=== PATIENT | male | born 2005 | race Caucasian/White ===

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

== ENCOUNTER 2023-11-13 14:27 | Emergency (ER) | payer MEDICARE, MEDICAID, SELFPAY ==
--- NOTE | ~2023-11-13 | US_ITS ---
EXAMINATION: US ABDOMEN LIMITED CLINICAL INFORMATION: Epigastric pain, gallstones. COMPARISON: None available. TECHNIQUE: Real-time imaging of the right upper quadrant abdominal viscera. FINDINGS: PANCREAS: Normal. LIVER: The liver is normal in size. The liver contour is normal. Slightly increased parenchymal echogenicity. No focal hepatic lesion. There is no intrahepatic biliary duct dilatation seen. GALLBLADDER: Normal. The gallbladder is physiologically distended without evidence of stones, sludge, polyps, wall thickening or pericholecystic fluid. COMMON BILE DUCT: Normal in caliber measuring 0.2 cm in diameter. RIGHT KIDNEY: Normal. No hydronephrosis. No renal calculi or focal parenchymal lesions. The kidney measures 10 cm in maximum dimension. FREE FLUID: None. US/US abdomen limited IMPRESSION: 1. Slightly increased hepatic parenchymal echogenicity, which is nonspecific but could be seen in the setting of hepatic steatosis or hepatocellular disease. Correlate with liver function tests. 2. Otherwise, normal examination. Specifically, no evidence of cholelithiasis or acute cholecystitis.
[2023-11-13 14:56] VITALS: BP 116/81; PULSE 106; RESP 18; TEMP 36.8; O2SAT 100; BMI 24.4
--- NOTE | 2023-11-13 14:58 | ED.GENADULT ---
HPI - General Adult General Chief complaint: Abdominal Pain Stated complaint: abd pain Time Seen by Provider: 11/13/23 21:22 Source: patient Mode of arrival: ambulatory Limitations: no limitations History of Present Illness HPI narrative: 18-year-old male presents to ED for epigastric abdominal pain with nausea for 11 days. Patient states symptoms mother due to withdrawal. Patient states he has been on Ativan and Venlafaxine for years, but lost her PCP due to missed appointments so did not a refill of those meds and has been without for 11 days. Patient states in the past when he has a sudden cut off of Ativan and venlaxafine he has had withdrawal symptoms in the past. Patient denies any lower abdominal pain. Patient states symptoms slight acid burning sensation. Related Data Home Medications ?Medication ?Instructions ?Recorded ?Confirmed cyproheptadine 4 mg tablet 4 mg PO BID 04/25/21 04/25/21 estradiol 0.1 mg/24 hr semiweekly 1 patch topical 2XW 04/25/21 04/25/21 transdermal patch isotretinoin 40 mg capsule 40 mg PO DAILY 04/25/21 04/25/21 (Amnesteem) lorazepam 1 mg tablet (Ativan) 1 tab PO TID PRN Anxiety 04/25/21 04/25/21 minocycline 100 mg capsule 100 mg PO BID 04/25/21 04/25/21 trazodone 50 mg tablet 50 mg PO BEDTIME 04/25/21 04/25/21 venlafaxine 150 mg 150 mg PO QAM 04/25/21 04/25/21 capsule,extended release 24 hr Previous Rx's ?Medication ?Instructions ?Recorded lorazepam 1 mg tablet (Ativan) 1 mg PO TID PRN anxiety 3 days #9 11/14/23 tabs ondansetron 4 mg disintegrating 4 mg PO Q6H PRN nausea and 11/14/23 tablet vomiting 2 days #8 tabs venlafaxine 100 mg tablet 100 mg PO QAM 3 days #3 tabs 11/14/23 Allergies Allergy/AdvReac Type Severity Reaction Status Date / Time amoxicillin [AMOXICILLIN] Allergy Unknown HIVES Verified 11/13/23 15:00 clavulanic acid Allergy Unknown HIVES Verified 11/13/23 15:00 [From AUGMENTIN] Review of Systems Review of Systems: epigastric pain. Nausea vomiting. Yes all other systems are reviewed and are negative [facility] Past Medical History Medical History ADHD Anxiety Autism Depression Self-harming behavior Social History Social History Alcohol intake: never Smoked in Last 30 Days: No Use of substances other than those prescribed or required for medical reasons: Yes Substance Use Type: Marijuana Substance Use Frequency: Occasionally Advance Directives: No Advance Directives Information Provided: No Do you have a plan to hurt others: No Plan Physical Exam ED Vital Signs: Vital Signs - 24 hr 11/13/23 14:56 11/13/23 21:32 11/14/23 01:56 Temperature 98.3 F 98.6 F 98.1 F Pulse Rate 106 H 76 91 Respiratory Rate 18 18 18 Blood Pressure 116/81 112/76 110/71 Pulse Oximetry 100 98 100 Oxygen Delivery Method Room Air Room Air Room Air BMI result Body Mass Index 24.4 Const General: cooperative, healthy appearing, comfortable, no acute distress, well developed, alert and awake Orientation/consciousness: oriented to person, oriented to place, oriented to time and patient oriented x3 HENMT Head: Yes normal to inspection, Yes No palpable skull fracture present, Yes normocephalic, Yes atraumatic and No abrasion Eyes General: appearance normal, both eyes and all related structures Neck Neck: Yes normal visual inspection, Yes full ROM, Yes no lymphadenopathy, Yes no meningeal signs, Yes trachea midline, Yes supple, No anterior neck swelling and No tender Chest Chest palpation & inspection: normal inspection of the chest and normal palpation of entire chest wall Resp Effort & Inspection: normal respiratory effort and able to speak in complete sentences Auscultation: clear to auscultation bilaterally Cardio Jugular venous distension: no JVD Heart sounds: S1 normal heart sound present and S2 normal heart sound present GI Inspection: Yes normal to inspection Palpation (GI): Tenderness to palpation present (GI) in the epigastrum; not in the LLQ, not in the RLQ, not in the LUQ, not in the RUQ, not at McBurney's point, not periumbilically, not suprapubicly, Mayes's sign negative, obturator sign negative, psoas sign negative, with no rebound tenderness and Rovsing's sign negative, no guarding and not rigid General: Yes no CVA tenderness Male General Exam: Yes normal external exam Penis: normal penis and circumcised Meatus: meatus normal Scrotum: scrotum normal Testes: Testes normal Back/Spine/Pelvis Back: no CVA tenderness and No back tenderness Skin General skin exam: no rashes or lesions noted, elasticity normal and turgor normal Neuro General: oriented to person, oriented to place, oriented to time, patient oriented x3, gait normal, tone normal, moves all extremities, Normal light touch and pain sensation, no meningeal signs, no focal motor deficits, CN's II-XI intact bilaterally and normal sensation to monofilament Extrem General: Yes normal to inspection, Yes full ROM and Yes capillary refill normal Psych Appearance: grossly normal, well kempt and not disheveled Course Course Course Narrative: RME performed by Alyssa Allison PA-C. Patient is a 18 year old assigned male at , now female - goes by Porsche (she/her) presenting to the emergency department with abdominal pain, nausea, and vomiting. Patient states that she recently went through ativan withdrawal but believes those symptoms have passed. Detailed physical exam and review of systems are deferred to the tile roofer. Labs and swabs ordered. Patient placed back in the waiting room pending room availability and results. Medications Administered Discontinued Medications Generic Name Dose Route Start Last Admin Trade Name Freq PRN Reason Stop Dose Admin Al Hydroxide/Mg Hydroxide 30 ml 11/13/23 22:11 11/13/23 22:36 Magnesium Hydrox/Alum Hydrox 30 Ml Oral.Susp PO 11/13/23 22:12 30 ml ONCE ONE Administration Famotidine 20 mg 11/13/23 22:11 11/13/23 22:36 Famotidine 20 Mg Tablet PO 11/13/23 22:12 20 mg ONCE ONE Administration Lidocaine HCl 15 ml 11/13/23 22:11 11/13/23 22:37 Lidocaine Hcl Viscous 2 % 15 Ml Solution MUCOUS MEM 11/13/23 22:12 15 ml ONCE ONE Administration Lorazepam 1 mg 11/13/23 22:10 11/13/23 22:36 Lorazepam 1 Mg Tablet PO 11/13/23 22:11 1 mg ONCE ONE Administration Ondansetron HCl 4 mg 11/13/23 23:51 11/14/23 01:21 Ondansetron Odt 4 Mg Tab.Travisdis ALIAINGU 11/13/23 23:52 4 mg ONCE ONE Administration Venlafaxine HCl 150 mg 11/13/23 22:11 11/13/23 22:43 Venlafaxine Hcl 25 Mg Tablet PO 11/13/23 22:12 150 mg ONCE ONE Administration Medical Decision Making Medical Decision Making [facility] Narrative: 18-year-old male identified as a woman see ED for epigastric pain nausea vomiting for 11 days since Ativan and venxalafine ran out and she was not given a refill. Patient denies any lower abdominal pain, symptoms, flank pain, fever, chills, nausea, or vomiting. Patient given dose of Ativan and venxaline in the ED. Will order abdominal ultrasound 2:04am: Abdominal ultrasound negative for cholecystitis but positive for fatty liver. Patient is sleeping comfortably in the bed. Patient not in any distress. Patient will be discharged to follow up with primary care provider. exam was perfomed before discharge due patient request after main complaint before discharge. Physical exam negative for signs of STD, torsion, epidydimitits, balanitis, fungal rash, or Cancer. Differential Diagnosis Differential Diagnoses: The differential diagnosis associated with the presentation includes (Cholecystitis, pancreatitis, benzo withdrawal) Admission/Observation Consideration of admission/observation: Escalation of care including admission/observation considered Lab Data [facility] Lab Attestation statement: I reviewed the patient's lab results. 11/13/23 16:56 11/13/23 16:56 Labs: Lab Results 11/13/23 11/13/23 Range/Units 16:56 22:14 WBC 11.6 H (4.8-10.8) X10*3/uL RBC 4.63 (4.60-5.80) X10*6/uL Hgb 15.1 (14.0-18.0) g/dl Hct 42.6 (42.0-52.0) % MCV 92.0 (80.0-98.0) fL MCH 32.6 (27.0-33.0) pg MCHC 35.4 (31.0-36.0) g/dl RDW 11.9 (11.0-16.0) % Plt Count 272 (160-400) X10*3/uL MPV 10.6 (9.4-12.4) fL Immature Gran % (Auto) 0.3 (0.0-0.4) % Neut % (Auto) 62.5 (45-73) % Lymph % (Auto) 29.5 (20-40) % Lenoir % (Auto) 6.4 (2-11) % Eos % (Auto) 0.7 (0-4) % Baso % (Auto) 0.6 (0-2) % Lymph # (Auto) 3.4 (1.2-4.9) X10*3/uL Lenoir # (Auto) 0.7 (0.1-1.2) X10*3/uL Eos # (Auto) 0.1 (0.0-0.4) X10*3/uL Baso # (Auto) 0.1 (0.0-0.2) X10*3/uL Abs Immat Gran (auto) 0.03 (0.00-0.03) X10*3/uL Absolute Neuts (auto) 7.3 (2.0-8.3) x10*3/uL Absolute Nucleated RBC 0.000 (0.0-0.012) X10*3/uL Nucleated RBC % (auto) 0.0 (0.0-0.2) /100WBC PT 11.5 (11.1-13.3) SEC INR 0.9 (0.9-1.1) APTT 34.6 (26.0-36.8) SEC Sodium 141 (135-145) mmol/L Potassium 4.1 (3.3-5.1) mmol/L Chloride 106 (96-108) mmol/L Carbon Dioxide 24 (22-29) mmol/L Anion Gap 15 (12-20) BUN 12 (9-16) mg/dL Creatinine 0.77 (0.5-1.4) mg/dL Estim Creat Clear Calc 167.9 Estimated GFR > 60 Random Glucose 89 (60-115) mg/dL Calcium 10.2 D (8.4-10.2) mg/dL Magnesium 2.1 (1.6-2.6) mg/dL Total Bilirubin 0.4 (0.0-1.0) mg/dL AST 19 (5-37) U/L ALT 17 (0-40) U/L Alkaline Phosphatase 66 (39-117) U/L Total Protein 7.9 (6.5-8.0) g/dL Albumin 4.8 (3.5-5.0) g/dL Lipase 28 (8-78) U/L Urine Color Dark Yellow Urine Appearance Cloudy Urine pH 6.0 (5.0-9.0) Ur Specific Dougherty >= 1.030 H (1.005-1.025) Urine Protein Trace (Neg-Trace) mg/dL Urine Glucose (UA) Negative (Negative) mg/dL Urine Ketones Trace (Negative) mg/dL Urine Blood Negative (Negative) Urine Nitrite Negative (Negative) Ur Leukocyte Esterase Negative (Negative) Influenza Type A (PCR) NEGATIVE (Negative) Influenza Type B (PCR) NEGATIVE (Negative) RSV RNA Qual (PCR) NEGATIVE (Negative) SARS-CoV-2 RNA (RT-PCR) NEGATIVE (Negative) S. pyogenes GrpA SARA Negative (Negative) Independent Interpretation I performed an independent interpretation of an: Ultrasound Radiology Impression Discussion of test interpretation with radiology: I have reviewed the radiologist's reading. Independent Historian Clinical information obtained from an independent historian. History obtained from or confirmed by: Other (Patient) External Record Review External record reviewed: Other (prior visits) Prescription Management I considered prescription management with: Other (ativan venlaxafine) Discharge Plan Discharge Clinical Impression: Fatty liver, Symptom of drug withdrawal Patient Disposition: Home, Self-Care Instructions: Non-Alcoholic Fatty Liver Disease (ED), Abdominal Pain (ED) Additional Instructions: Return to the ED immediately for any worsening abdominal pain, nausea, vomiting, flank pain, fever, chills, dysuria, hematuria, testicular pain, penile pain, headache, chills, tremors seizure, altered mental status, or any other concerning symptoms. You will be given short course of Ativan and venlafaxine fine to prevent withdrawal symptoms Prescriptions: New lorazepam [Ativan] 1 mg tablet 1 mg PO TID PRN (Reason: anxiety) 3 Days Qty: 9 0RF venlafaxine 100 mg tablet 100 mg PO QAM 3 Days Qty: 3 0RF ondansetron 4 mg tablet,disintegrating 4 mg PO Q6H PRN (Reason: nausea and vomiting) 2 Days Qty: 8 0RF No Action isotretinoin [Amnesteem] 40 mg capsule 40 mg PO DAILY trazodone 50 mg tablet 50 mg PO BEDTIME minocycline 100 mg capsule 100 mg PO BID estradiol 0.1 mg/24 hr patch semiweekly 1 patch topical 2XW venlafaxine 150 mg capsule,extended release 24hr 150 mg PO QAM cyproheptadine 4 mg tablet 4 mg PO BID lorazepam [Ativan] 1 mg tablet 1 tab PO TID PRN (Reason: Anxiety) Stand Alone Forms: Work/School Release Interventions: ED Discharge Assessment Last Done: 11/14/23 03:15 Discharge Date/Time: 11/14/23 03:16 Print Language: Vietnamese
[2023-11-13 17:00] LABS: MANUAL DIFF FLAG NO
[2023-11-13 17:02] LABS: Basophils Absolute Auto 0.1 X10*3/uL (0.0-0.2); Basophils Percent Auto 0.6 % (0-2); Eosinophils Absolute Auto 0.1 X10*3/uL (0.0-0.4); Eosinophils Percent Auto 0.7 % (0-4); Hematocrit 42.6 % (42.0-52.0); Hemoglobin 15.1 g/dl (14.0-18.0); Imm Gran Abs Auto 0.03 X10*3/uL (0.00-0.03); Imm Gran Pct Auto 0.3 % (0.0-0.4); Lymphocytes Absolute Auto 3.4 X10*3/uL (1.2-4.9); Lymphocytes Percent Auto 29.5 % (20-40); Mean Corpuscular HGB Conc 35.4 g/dl (31.0-36.0); Mean Corpuscular Hemoglobin 32.6 pg (27.0-33.0); Mean Platelet Volume 10.6 fL (9.4-12.4); Monocytes Absolute Auto 0.7 X10*3/uL (0.1-1.2); Monocytes Percent Auto 6.4 % (2-11); Neutrophils Absolute Auto 7.3 x10*3/uL (2.0-8.3); Neutrophils Percent Auto 62.5 % (45-73); Platelet Count 272 X10*3/uL (160-400); Red Blood Count 4.63 X10*6/uL (4.60-5.80); Red Cell Distribution Width 11.9 % (11.0-16.0); White Blood Count 11.6 X10*3/uL (4.8-10.8)
[2023-11-13 17:07] LABS: INTERNATIONAL NORM RATIO 0.9 (0.9-1.1); Prothrombin Time 11.5 SEC (11.1-13.3)
[2023-11-13 17:09] LABS: Partial Thromboplastin Time 34.6 SEC (26.0-36.8)
[2023-11-13 17:14] LABS: IDNOW Serial# 08D9AD1C; Strep A Nucleic Acid Negative (Negative)
[2023-11-13 17:16] LABS: Alanine Aminotransferase 17 U/L (0-40); Albumin Level 4.8 g/dL (3.5-5.0); Alkaline Phosphatase 66 U/L (39-117); Anion Gap 15 (12-20); Aspartate Amino Transferase 19 U/L (5-37); Bilirubin Total 0.4 mg/dL (0.0-1.0); Blood Urea Nitrogen 12 mg/dL (9-16); Calcium 10.2 mg/dL (8.4-10.2); Carbon Dioxide 24 mmol/L (22-29); Chloride 106 mmol/L (96-108); Creatinine Clr Calc Pharmacy 167.9; Estimated Glomerular Filt Rate > 60; Glucose Random 89 mg/dL (60-115); Magnesium 2.1 mg/dL (1.6-2.6); Potassium 4.1 mmol/L (3.3-5.1); Sodium 141 mmol/L (135-145); Total Protein 7.9 g/dL (6.5-8.0)
[2023-11-13 17:42] LABS: Influenza A PCR NEGATIVE (Negative); Influenza B PCR NEGATIVE (Negative); Resp Syncy Virus RNA Qual PCR NEGATIVE (Negative); SARS COV2 PCR INHOUSE NEGATIVE (Negative)
--- OUTSIDE RECORDS SUMMARY | 2023-11-13 21:28 | XMS_ITS | Continuity of Care Document ---
Author Organization [facility] Address [address] [place] [address]- Care Team Providers Care Tracer Powder Blender Name Role Phone Sabiha Downs Primary Care Physician [phone] Encounter [facility] Date(s): 12/02/22 - 05/27/[address] [id number] Attending Physician: Shaun Dickerson MD Admitting Physician: Shaun Dickerson MD Referring Physician: Shaun Dickerson MD Allergies, Adverse Reactions, Alerts Substance Reaction [...] 48 each, 4 Refills, Maintenance, 09/15/22 15:00:00 [employer] [facility], [facility] #[id number], Partial fill upon patient request if the prescription is for a schedule II opioid drug., 183.6, cm, 05/20/21 14:35:0... 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, 0 Refills, Maintenance, 09/04/19 13:15:00 EST, [...] each, 5 Refills, Maintenance, 10/25/22 13:57:00 EDT, [facility] #[id number], Partial fill upon patient request if the [...] 1 Refills, Maintenance, 06/29/21 13:38:00 EST, Powder, [facility], 183.6, cm, 05/20/21 14:35:00 [...] Care Team Personnel Name: Sabiha Downs Position: [facility] Outreach Member Role: PCP Address: Address: [address] [place] [address]- Care Team Related Persons Name: SHAHIDA SARKAR Address: home [address] [address] Name: VALAIRE SARKAR Address: home [address] [place] [address]
--- OUTSIDE RECORDS SUMMARY | 2023-11-13 21:28 | XMS_ITS | Continuity of Care Document ---
Author Organization [facility] Address [address] [place] [address]- Care Team Providers Care Palm And Back Forger Name Role Phone Sabiha Downs Primary Care Physician [phone] Encounter [facility] Date(s): 11/24/22 - 02/28/[address] [id number] Discharge Disposition: A-D/C Home Attending Physician: Lachelle Cline MD Admitting Physician: Lachelle Cline MD Referring Physician: Sabiha Downs Allergies, Adverse Reactions, Alerts Substance Reaction Severity [...] each, 4 Refills, Maintenance, 09/15/22 15:00:00 EST, [facility] #[id number], Partial fill upon patient request if the prescription is for a schedule II opioid drug., 183.6, cm, 05/20/21 14:35:0... 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, 0 Refills, Maintenance, 09/04/19 13:15:00 [...] each, 5 Refills, Maintenance, 10/25/22 13:57:00 EDT, [facility] #[id number], Partial fill upon patient request if the [...] 1 Refills, Maintenance, 06/29/21 13:38:00 EST, Powder, [facility], 183.6, cm, 05/20/21 14:35:00 [...] Care Team Personnel Name: Sabiha Downs Position: [facility] Outreach Member Role: PCP Address: Address: [address] [place] [address]- Care Team Related Persons Name: SHAHIDA SARKAR Address: home [address] [address] Name: VALARIE SARKAR Address: home [address] [place] [address]
[2023-11-13 21:32] VITALS: BP 112/76; PULSE 76; RESP 18; TEMP 37; O2SAT 98
[2023-11-13 22:21] LABS: Appearance Urine Cloudy; Color Urine Dark Yellow; Glucose Urine UA Negative (Negative); Leukocyte Esterase Urine Negative (Negative); Nitrite Urine Negative (Negative); Specific Gravity - Urine >= 1.030 (1.005-1.025); Urine Blood Negative (Negative); Urine Ketones Trace mg/dL (Negative); Urine Protein Trace mg/dL (Neg-Trace)
[2023-11-13 22:29] LABS: Lipase 28 U/L (8-78)
[2023-11-13] MEDS: Famotidine 20 MG TABLET PO (22:36)
[2023-11-13] MEDS: Magnesium Hydrox/Alum Hydrox 30 ML ORAL.SUSP PO (22:36)
[2023-11-13] MEDS: LORazepam 1 MG TABLET PO (22:36)
[2023-11-13] MEDS: Lidocaine HCl Viscous 2 % 15 ML SOLUTION MUCOUS MEM (22:37)
[2023-11-13] MEDS: Venlafaxine HCL 25 MG TABLET 150 MG PO (22:43)
[2023-11-14] MEDS: Ondansetron ODT 4 MG TAB.RAPDIS TRANSLINGU (01:21)
[2023-11-14 01:56] VITALS: BP 110/71; PULSE 91; RESP 18; TEMP 36.7; O2SAT 100
[2023-11-14 03:15] VITALS: BP 114/77; PULSE 101; RESP 18; TEMP 36.9; O2SAT 94
== END 2023-11-14 03:16 | disposition home or self-care (01) ==
PROVIDERS: Physician Assistant; Physician Assistant Medical; Emergency Provider Emergency Medicine
DX: R10.13 Epigastric pain (principal); R11.0 Nausea; K76.0 Fatty (change of) liver, not elsewhere classified; F19.239 Other psychoactive substance dependence with withdrawal, unspecified; Z03.818 Encounter for observation for suspected exposure to other biological agents ruled out
CPT/HCPCS: 0241U; 36415; 76705; 80053; 81003; 83690; 83735; 85025; 85610; 85730; 87651; 99284

== ENCOUNTER 2024-06-12 13:44 | Emergency (ER) | payer MEDICARE, MEDICAID, SELFPAY ==
--- NOTE | ~2024-06-12 | CT_ITS ---
EXAMINATION: CT ABDOMEN AND PELVIS WITHOUT CONTRAST CLINICAL INFORMATION: Right-sided abdominal pain COMPARISON: None available. TECHNIQUE: Multidetector volumetric imaging was performed from the superior aspect of the liver through the pubic symphysis. Sagittal and coronal reformatted images were obtained on the technologist's workstation. This CT examination was performed using dose optimization techniques as appropriate, variously including the following: *Automated exposure control *Adjustment of mA and/or kV according to patient size (this includes techniques or standardized protocols for targeted exams where dose is matched to indication/reason for exam; i.e. extremities or head) *Use of iterative reconstruction technique DLP: 487 mGy-cm FINDINGS: LUNG BASES: The visualized lung bases are unremarkable. LIVER, GALLBLADDER, AND BILIARY TREE: The liver is normal in size, shape, and attenuation. No focal hepatic lesion or biliary ductal dilatation is present. The gallbladder is unremarkable with no evidence of radiopaque gallstones, gallbladder wall thickening, or obvious pericholecystic inflammatory changes. PANCREAS: Unremarkable. SPLEEN: Unremarkable. ADRENAL GLANDS: Unremarkable. KIDNEYS AND URETERS: The kidneys are normal in size, shape, and attenuation. No hydronephrosis, hydroureter, or calculi seen. No perinephric stranding. BLADDER: Unremarkable. GASTROINTESTINAL TRACT: Moderate stool burden in the ascending colon. The small and large bowel are unremarkable. The appendix is seen in its entirety and unremarkable. ABDOMINAL WALL: No significant hernia is appreciated. LYMPH NODES: Normal. VASCULAR: Unremarkable. PELVIC VISCERA: Unremarkable. OSSEOUS STRUCTURES: Unremarkable. CT/CT abdomen pelvis wo IV con IMPRESSION: 1. No acute findings within the abdomen or pelvis. 2. Moderate stool burden in the ascending colon. Fleischner guidelines were followed. Electronically signed by: Eva Song MD 06/12/2024 11:23 PM [facility]
[2024-06-12 13:57] VITALS: BP 110/74; PULSE 100; RESP 19; TEMP 36.6; O2SAT 100; BMI 26.3
[2024-06-12 15:04] LABS: Basophils Percent Auto 0.4 % (0-2); Eosinophils Absolute Auto 0.3 X10*3/uL (0.0-0.4); Eosinophils Percent Auto 2.8 % (0-4); Hematocrit 41.7 % (42.0-52.0); Hemoglobin 14.1 g/dl (14.0-18.0); Imm Gran Abs Auto 0.03 X10*3/uL (0.00-0.03); Imm Gran Pct Auto 0.3 % (0.0-0.4); Lymphocytes Absolute Auto 2.6 X10*3/uL (1.2-4.9); Lymphocytes Percent Auto 28.7 % (20-40); MANUAL DIFF FLAG NO; Mean Corpuscular HGB Conc 33.8 g/dl (31.0-36.0); Mean Corpuscular Hemoglobin 31.6 pg (27.0-33.0); Mean Corpuscular Volume 93.5 fL (80.0-98.0); Monocytes Absolute Auto 0.8 X10*3/uL (0.1-1.2); Monocytes Percent Auto 8.3 % (2-11); Neutrophils Absolute Auto 5.4 x10*3/uL (2.0-8.3); Neutrophils Percent Auto 59.5 % (45-73); Platelet Count 236 X10*3/uL (160-400); Red Blood Count 4.46 X10*6/uL (4.60-5.80); Red Cell Distribution Width 12.3 % (11.0-16.0); White Blood Count 9.2 X10*3/uL (4.8-10.8)
[2024-06-12 15:21] LABS: Alanine Aminotransferase 15 U/L (0-40); Albumin Level 4.3 g/dL (3.5-5.0); Alkaline Phosphatase 72 U/L (39-117); Anion Gap 13 (12-20); Aspartate Amino Transferase 22 U/L (5-37); Bilirubin Direct < 0.2 mg/dL (0.0-0.5); Bilirubin Total 0.2 mg/dL (0.0-1.0); Blood Urea Nitrogen 12 mg/dL (9-16); Carbon Dioxide 28 mmol/L (22-29); Chloride 106 mmol/L (96-108); Creatinine Clr Calc Pharmacy 168.7; Estimated Glomerular Filt Rate > 60; Glucose Random 83 mg/dL (60-115); Lipase 30 U/L (8-78); Potassium 4.5 mmol/L (3.3-5.1); Sodium 142 mmol/L (135-145); Total Protein 6.9 g/dL (6.5-8.0)
[2024-06-12 15:41] LABS: Influenza A PCR NEGATIVE (Negative); Influenza B PCR NEGATIVE (Negative); Resp Syncy Virus RNA Qual PCR NEGATIVE (Negative); SARS COV2 PCR INHOUSE NEGATIVE (Negative)
--- NOTE | 2024-06-12 19:04 | ED.GENADULT ---
HPI - General Adult General Chief complaint: Abdominal Pain Stated complaint: vomiting Time Seen by Provider: 06/12/24 21:40 Source: patient Mode of arrival: ambulatory Limitations: no limitations History of Present Illness ED Provider: HPI narrative: 19-year-old female to male transgender presents with nausea, vomiting, epigastric abdominal discomfort and reports 1 episode of blood in vomit yesterday. Has come in to triage multiple times stating worsening pain. No fevers, chills, chest pain, shortness of breath, headache, vision changes, dizziness or weakness. Patient is feeling much better now taking p.o. fluids has some pain in the epigastric area blood was only streaks of blood no blood after that no melena no history of peptic ulcer disease Related Data Home Medications ?Medication ?Instructions ?Recorded ?Confirmed cyproheptadine 4 mg tablet 4 mg PO BID 04/25/21 04/25/21 estradiol 0.1 mg/24 hr semiweekly 1 patch topical 2XW 04/25/21 04/25/21 transdermal patch isotretinoin 40 mg capsule 40 mg PO DAILY 04/25/21 04/25/21 (Amnesteem) lorazepam 1 mg tablet (Ativan) 1 tab PO TID PRN Anxiety 04/25/21 04/25/21 minocycline 100 mg capsule 100 mg PO BID 04/25/21 04/25/21 trazodone 50 mg tablet 50 mg PO BEDTIME 04/25/21 04/25/21 venlafaxine 150 mg 150 mg PO QAM 04/25/21 04/25/21 capsule,extended release 24 hr Previous Rx's ?Medication ?Instructions ?Recorded lorazepam 1 mg tablet (Ativan) 1 mg PO TID PRN anxiety 3 days #9 11/14/23 tabs ondansetron 4 mg disintegrating 4 mg PO Q6H PRN nausea and 11/14/23 tablet vomiting 2 days #8 tabs venlafaxine 100 mg tablet 100 mg PO QAM 3 days #3 tabs 11/14/23 omeprazole 40 mg capsule,delayed 40 mg PO DAILY #30 caps 06/12/24 release ondansetron 4 mg disintegrating 4 mg PO Q6-8H PRN nausea and 06/12/24 tablet vomiting #7 tabs Allergies Allergy/AdvReac Type Severity Reaction Status Date / Time amoxicillin [AMOXICILLIN] Allergy Unknown HIVES Verified 06/12/24 13:59 clavulanic acid Allergy Unknown HIVES Verified 06/12/24 13:59 [From AUGMENTIN] Review of Systems Review of Systems: Yes all other systems are reviewed and are negative [facility] Past Medical History Medical History Self-harming behavior Anxiety Depression ADHD Autism Social History Social History Alcohol intake: never Smoked in Last 30 Days: No Use of substances other than those prescribed or required for medical reasons: No Substance Use Type: Marijuana Advance Directives: No Advance Directives Information Provided: No Do you have a plan to hurt others: No Plan Physical Exam ED Vital Signs: Vital Signs - 24 hr 06/12/24 13:57 Temperature 98 F Pulse Rate 100 Respiratory Rate 19 Blood Pressure 110/74 Pulse Oximetry 100 Oxygen Delivery Method Room Air BMI result Body Mass Index 26.3 Appearance: Alert. Oriented X3. No acute distress. Eyes: PERRLA, No Nystagmus ENT: Pharynx normal. Oral Mucosa moist Neck: Normal inspection. Neck supple. CVS: Normal heart rate and rhythm. Pulses normal. Respiratory: No respiratory distress. Equal air entry bilateral, no wheezing/rales/rhonchi Abdomen: Soft and mild tenderness. Bowel sounds are present, no mass palpable, no CVA tenderness Skin: Skin warm and dry. Normal skin color. Normal skin turgor. Extremities: No lower extremity edema. No calf tenderness Neuro: Oriented X 3. No motor deficit. No sensory deficit.No cerebellar signs , cranial nerves II-XII intact Course Course Course Narrative: This is an RME done by VIRGINIE Lord: Additional HPI, ROS, PE not included below will be deferred to primary provider. 19-year-old female to male transgender presents with nausea, vomiting, epigastric abdominal discomfort and reports 1 episode of blood in vomit yesterday. Has come in to triage multiple times stating worsening pain. No fevers, chills, chest pain, shortness of breath, headache, vision changes, dizziness or weakness. Plan will order labs, imaging. Appearance: Alert.? Oriented X3.? No acute cardiopulmonary distress distress.? Head: Normocephalic, atraumatic, no step-offs or deformities Neck: Normal inspection.? Neck supple.? CVS: Pulses normal.? Respiratory: No respiratory distress.? Abdomen: Soft and tender to epigastric region .? Skin: ? Normal skin color. Extremities: 5/5 strength to bilateral upper and lower extremities Neuro: Oriented X 3.? No motor deficit.? No sensory deficit. Medications Administered Discontinued Medications Generic Name Dose Route Start Last Admin Trade Name Freq PRN Reason Stop Dose Admin Al Hydroxide/Mg Hydroxide 30 ml 06/12/24 22:26 06/12/24 22:49 Magnesium Hydrox/Alum Hydrox 30 Ml Oral.Susp PO 06/12/24 22:27 Not Given ONCE ONE Sodium Chloride 1,000 mls @ 999 mls/hr 06/12/24 21:17 06/12/24 21:28 Ns IV 06/12/24 22:17 Not Given .Q1H1M ONE Magnesium Hydroxide 30 ml 06/12/24 22:27 06/12/24 22:49 Milk Of Magnesia 30 Ml Oral.Susp PO 06/12/24 22:28 Not Given ONCE ONE Morphine Sulfate 4 mg 06/12/24 21:17 06/12/24 21:28 Morphine Sulfate 4 Mg/Ml Cartridge IVPUSH 06/12/24 21:18 Not Given ONCE ONE Protocol Omeprazole 40 mg 06/12/24 22:26 06/12/24 22:48 Omeprazole 40 Mg Capsule.Dr PO 06/12/24 22:27 40 mg ONCE ONE Administration Ondansetron HCl 4 mg 06/12/24 21:17 06/12/24 21:29 Ondansetron Hcl 4 Mg/2 Ml Vial IVPUSH 06/12/24 21:18 Not Given ONCE ONE Ondansetron HCl 4 mg 06/12/24 21:51 06/12/24 21:53 Ondansetron Odt 4 Mg Tab.Rapdis TRANSLINGU 06/12/24 21:52 4 mg ONCE ONE Administration Medical Decision Making Medical Decision Making [facility] Narrative: Patient with acute gastritis feeling much better during stay in the ER taking p.o. fluids labs are stable discharge patient home Differential Diagnosis Differential Diagnoses: The differential diagnosis associated with the presentation includes Lab Data [facility] Lab Attestation statement: I reviewed the patient's lab results. 06/12/24 14:58 06/12/24 14:58 Labs: Lab Results 06/12/24 Range/Units 14:58 WBC 9.2 (4.8-10.8) X10*3/uL RBC 4.46 L (4.60-5.80) X10*6/uL Hgb 14.1 (14.0-18.0) g/dl Hct 41.7 L (42.0-52.0) % MCV 93.5 (80.0-98.0) fL MCH 31.6 (27.0-33.0) pg MCHC 33.8 (31.0-36.0) g/dl RDW 12.3 (11.0-16.0) % Plt Count 236 (160-400) X10*3/uL MPV 11.0 (9.4-12.4) fL Immature Gran % (Auto) 0.3 (0.0-0.4) % Neut % (Auto) 59.5 (45-73) % Lymph % (Auto) 28.7 (20-40) % [place] % (Auto) 8.3 (2-11) % Eos % (Auto) 2.8 (0-4) % Baso % (Auto) 0.4 (0-2) % Lymph # (Auto) 2.6 (1.2-4.9) X10*3/uL [place] # (Auto) 0.8 (0.1-1.2) X10*3/uL Eos # (Auto) 0.3 (0.0-0.4) X10*3/uL Baso # (Auto) 0.0 (0.0-0.2) X10*3/uL Abs Immat Gran (auto) 0.03 (0.00-0.03) X10*3/uL Absolute Neuts (auto) 5.4 (2.0-8.3) x10*3/uL Absolute Nucleated RBC 0.000 (0.0-0.012) X10*3/uL Nucleated RBC % (auto) 0.0 (0.0-0.2) /100WBC Sodium 142 (135-145) mmol/L Potassium 4.5 (3.3-5.1) mmol/L Chloride 106 (96-108) mmol/L Carbon Dioxide 28 (22-29) mmol/L Anion Gap 13 (12-20) BUN 12 (9-16) mg/dL Creatinine 0.76 (0.5-1.4) mg/dL Estim Creat Clear Calc 168.7 Estimated GFR > 60 Random Glucose 83 (60-115) mg/dL Calcium 10.0 (8.4-10.2) mg/dL Total Bilirubin 0.2 (0.0-1.0) mg/dL Direct Bilirubin < 0.2 (0.0-0.5) mg/dL AST 22 (5-37) U/L ALT 15 (0-40) U/L Alkaline Phosphatase 72 (39-117) U/L Total Protein 6.9 (6.5-8.0) g/dL Albumin 4.3 (3.5-5.0) g/dL Lipase 30 (8-78) U/L Influenza Type A (PCR) NEGATIVE (Negative) Influenza Type B (PCR) NEGATIVE (Negative) RSV RNA Qual (PCR) NEGATIVE (Negative) SARS-CoV-2 RNA (RT-PCR) NEGATIVE (Negative) Discharge Plan Discharge Clinical Impression: Acute gastritis, Constipation Patient Disposition: Home, Self-Care Instructions: Gastritis (ED), Constipation (ED) Additional Instructions: Drink plenty of fluids Avoid spicy/fried food Take your stool softener Medication for acid reflux as advised Prescriptions: New omeprazole 40 mg capsule,delayed release(DR/EC) 40 mg PO DAILY Qty: 30 0RF ondansetron 4 mg tablet,disintegrating 4 mg PO Q6-8H PRN (Reason: nausea and vomiting) Qty: 7 0RF No Action isotretinoin [Amnesteem] 40 mg capsule 40 mg PO DAILY trazodone 50 mg tablet 50 mg PO BEDTIME minocycline 100 mg capsule 100 mg PO BID estradiol 0.1 mg/24 hr patch semiweekly 1 patch topical 2XW venlafaxine 150 mg capsule,extended release 24hr 150 mg PO QAM cyproheptadine 4 mg tablet 4 mg PO BID lorazepam [Ativan] 1 mg tablet 1 tab PO TID PRN (Reason: Anxiety) lorazepam [Ativan] 1 mg tablet 1 mg PO TID PRN (Reason: anxiety) 3 Days Qty: 9 0RF venlafaxine 100 mg tablet 100 mg PO QAM 3 Days Qty: 3 0RF ondansetron 4 mg tablet,disintegrating 4 mg PO Q6H PRN (Reason: nausea and vomiting) 2 Days Qty: 8 0RF Interventions: ED Discharge Assessment Last Done: 06/12/24 23:09 Discharge Date/Time: 06/12/24 23:10 Print Language: Ukrainian
--- NOTE | 2024-06-12 21:27 | PC.NURSE ---
declined iv and ns and meds, pain has subsided and pt doesn't feel like she needs any of it
[2024-06-12] MEDS: Ondansetron ODT 4 MG TAB.RAPDIS TRANSLINGU (21:53)
[2024-06-12 22:00] VITALS: BP 108/61; PULSE 73; RESP 16; TEMP 36.8; O2SAT 98
[2024-06-12] MEDS: Omeprazole 40 MG CAPSULE.DR PO (22:48)
--- NOTE | 2024-06-12 23:01 | PC.NURSE ---
pt was medicated per sep, reviewed discharge instruction with pt. pt verbalized understanding, no sign of distress, reports pain has improved. pt had a steady gait upon discharge.
[2024-06-12 23:09] VITALS: BP 108/61; PULSE 73; RESP 16; TEMP 36.8; O2SAT 98
== END 2024-06-12 23:10 | disposition home or self-care (01) ==
PROVIDERS: Emergency Provider Internal Medicine; PCP Surgery
DX: K29.00 Acute gastritis without bleeding (principal); K59.00 Constipation, unspecified; Z03.818 Encounter for observation for suspected exposure to other biological agents ruled out; R10.13 Epigastric pain; F64.0 Transsexualism; Z79.899 Other long term (current) drug therapy
CPT/HCPCS: 0241U; 36415; 74176; 80048; 80076; 83690; 85025; 99284

== ENCOUNTER 2024-06-17 11:22 | Emergency (ER) | payer MEDICARE, MEDICAID, SELFPAY ==
--- NOTE | ~2024-06-17 | XR_ITS ---
EXAMINATION: XR ABDOMEN KUB CLINICAL INDICATION: Patient states constipation for 9 days. COMPARISON: CT abdomen and pelvis of 06/12/2024, ultrasound abdomen 11/13/2023. TECHNIQUE: 2 AP views of the abdomen. FINDINGS: Nonobstructive bowel gas pattern. Multiple rounded pelvic calcifications. Transitional lumbosacral vertebral body. Ejyhxuov-[id number] amount of stool in the colon, predominantly in the ascending colon and overlying the pelvis. XR/XR KUB IMPRESSION: [id number] amount of stool in the colon. Nonobstructive bowel gas pattern. Electronically signed by: Jessica Huffman MD 06/17/2024 12:27 PM [facility]
[2024-06-17 11:28] VITALS: BP 114/63; PULSE 108; RESP 20; TEMP 37.4; O2SAT 100; BMI 26.3
--- NOTE | 2024-06-17 11:33 | ED.GENADULT ---
HPI - General Adult General Chief complaint: Abdominal Pain Stated complaint: Abd pain Time Seen by Provider: 06/17/24 14:22 Source: patient Mode of arrival: ambulatory Limitations: no limitations History of Present Illness ED Provider: David Spears PA-C HPI narrative: 19-year-old male who identifies as a woman presents to ED for constipation for 9 days. Patient states no relief with MiraLax milk of magnesia or enema. Patient denies any nausea, vomiting, fever, or chills. Patient admits to passing gas. Patient states small drops abdominal movement. Patient denies any chest pain or shortness of breath. Related Data Home Medications ?Medication ?Instructions ?Recorded ?Confirmed cyproheptadine 4 mg tablet 4 mg PO BID 04/25/21 04/25/21 estradiol 0.1 mg/24 hr semiweekly 1 patch topical 2XW 04/25/21 04/25/21 transdermal patch isotretinoin 40 mg capsule 40 mg PO DAILY 04/25/21 04/25/21 (Amnesteem) lorazepam 1 mg tablet (Ativan) 1 tab PO TID PRN Anxiety 04/25/21 04/25/21 minocycline 100 mg capsule 100 mg PO BID 04/25/21 04/25/21 trazodone 50 mg tablet 50 mg PO BEDTIME 04/25/21 04/25/21 venlafaxine 150 mg 150 mg PO QAM 04/25/21 04/25/21 capsule,extended release 24 hr Previous Rx's ?Medication ?Instructions ?Recorded lorazepam 1 mg tablet (Ativan) 1 mg PO TID PRN anxiety 3 days #9 11/14/23 tabs ondansetron 4 mg disintegrating 4 mg PO Q6H PRN nausea and 11/14/23 tablet vomiting 2 days #8 tabs venlafaxine 100 mg tablet 100 mg PO QAM 3 days #3 tabs 11/14/23 omeprazole 40 mg capsule,delayed 40 mg PO DAILY #30 caps 06/12/24 release ondansetron 4 mg disintegrating 4 mg PO Q6-8H PRN nausea and 06/12/24 tablet vomiting #7 tabs lactulose 10 gram/15 mL oral 20 g (30 mL) PO DAILY 3 days #90 mL 06/17/24 solution Allergies Allergy/AdvReac Type Severity Reaction Status Date / Time amoxicillin [AMOXICILLIN] Allergy Unknown HIVES Verified 06/17/24 11:32 clavulanic acid Allergy Unknown HIVES Verified 06/17/24 11:32 [From AUGMENTIN] Review of Systems Review of Systems: Constipation Yes all other systems are reviewed and are negative [facility] Past Medical History Medical History Self-harming behavior Anxiety Depression ADHD Autism Social History Social History Alcohol intake: never Substance Use Type: Marijuana Advance Directives: No Advance Directives Information Provided: Yes Do you have a plan to hurt others: No Plan Physical Exam ED Vital Signs: Vital Signs - 24 hr 06/17/24 11:28 06/17/24 14:19 06/17/24 14:39 Temperature 99.3 F 98.7 F 98.7 F Pulse Rate 108 H 80 80 Respiratory Rate 20 20 20 Blood Pressure 114/63 101/62 101/62 Pulse Oximetry 100 100 100 Oxygen Delivery Method Room Air Room Air Room Air BMI result Body Mass Index 26.3 Const General: cooperative, healthy appearing, comfortable, no acute distress, well developed, alert, awake and Physically active Orientation/consciousness: patient oriented x3 HENMT Head: Yes normal to inspection, Yes No palpable skull fracture present, Yes normocephalic and Yes atraumatic Eyes General: appearance normal, both eyes and all related structures Neck Neck: Yes normal visual inspection, Yes full ROM, Yes no lymphadenopathy, Yes no meningeal signs, Yes trachea midline, Yes supple, No anterior neck swelling and No tender Chest Chest palpation & inspection: normal inspection of the chest and normal palpation of entire chest wall Resp Effort & Inspection: normal respiratory effort and able to speak in complete sentences Auscultation: clear to auscultation bilaterally Cardio Jugular venous distension: no JVD Heart sounds: S1 normal heart sound present and S2 normal heart sound present GI Inspection: Yes normal to inspection Palpation (GI): not firm, nontender, no guarding and not rigid General: No CVA tenderness and Yes no CVA tenderness Back/Spine/Pelvis Back: no CVA tenderness, No CVA tenderness and No back tenderness Skin General skin exam: no rashes or lesions noted, elasticity normal and turgor normal Neuro General: patient oriented x3, gait normal, tone normal, moves all extremities, Normal light touch and pain sensation, no meningeal signs, no focal motor deficits, CN's II-XI intact bilaterally and normal sensation to monofilament Extrem General: Yes normal to inspection, Yes full ROM and Yes capillary refill normal Psych Appearance: grossly normal, well kempt and not disheveled Course Course Course Narrative: RME: Patient presents to ED for 9 days of constipation. Patient states using milk of magnesia, MiraLax, even am going to without any success. KUB ordered Medical Decision Making Medical Decision Making [facility] Narrative: 19-year-old transgender female presents to ED for constipation for 9 days. Abdomen is soft benign and normal bowel sounds. Not suspecting small bowel obstruction. X-ray shows large moderate constipation without any small bowel obstruction. Labs are normal. Patient will be discharged with lactulose. Patient's mother explained worrisome signs informed to return to the ED immediately. Not suspecting appendicitis, cholecystitis, pancreatitis, colitis, UTI, kidney stones, testicular torsion, hernia, or any other life-threatening etiologies. Differential Diagnosis Differential Diagnoses: The differential diagnosis associated with the presentation includes (Constipation) Admission/Observation Consideration of admission/observation: Escalation of care including admission/observation considered Lab Data [facility] Lab Attestation statement: I reviewed the patient's lab results. 06/17/24 11:53 06/17/24 11:53 Labs: Lab Results 06/17/24 Range/Units 11:53 WBC 6.8 (4.8-10.8) X10*3/uL RBC 4.15 L (4.60-5.80) X10*6/uL Hgb 13.3 L (14.0-18.0) g/dl Hct 39.3 L (42.0-52.0) % MCV 94.7 (80.0-98.0) fL MCH 32.0 (27.0-33.0) pg MCHC 33.8 (31.0-36.0) g/dl RDW 12.3 (11.0-16.0) % Plt Count 223 (160-400) X10*3/uL MPV 11.0 (9.4-12.4) fL Immature Gran % (Auto) 0.1 (0.0-0.4) % Neut % (Auto) 57.8 (45-73) % Lymph % (Auto) 28.6 (20-40) % [place] % (Auto) 9.7 (2-11) % Eos % (Auto) 3.4 (0-4) % Baso % (Auto) 0.4 (0-2) % Lymph # (Auto) 2.0 (1.2-4.9) X10*3/uL [place] # (Auto) 0.7 (0.1-1.2) X10*3/uL Eos # (Auto) 0.2 (0.0-0.4) X10*3/uL Baso # (Auto) 0.0 (0.0-0.2) X10*3/uL Abs Immat Gran (auto) 0.01 (0.00-0.03) X10*3/uL Absolute Neuts (auto) 4.0 (2.0-8.3) x10*3/uL Absolute Nucleated RBC 0.000 (0.0-0.012) X10*3/uL Nucleated RBC % (auto) 0.0 (0.0-0.2) /100WBC Sodium 139 (135-145) mmol/L Potassium 4.1 (3.3-5.1) mmol/L Chloride 106 (96-108) mmol/L Carbon Dioxide 30 H (22-29) mmol/L Anion Gap 7 L (12-20) BUN 10 (9-16) mg/dL Creatinine 0.66 (0.5-1.4) mg/dL Estim Creat Clear Calc 194.3 Estimated GFR > 60 Random Glucose 88 (60-115) mg/dL Calcium 9.4 (8.4-10.2) mg/dL Total Bilirubin 0.4 (0.0-1.0) mg/dL AST 20 (5-37) U/L ALT 17 (0-40) U/L Alkaline Phosphatase 50 (39-117) U/L Total Protein 6.5 (6.5-8.0) g/dL Albumin 4.0 (3.5-5.0) g/dL Independent Interpretation I performed an independent interpretation of an: Plain X-Ray Radiology Impression Discussion of test interpretation with radiology: I have reviewed the radiologist's reading. Independent Historian Clinical information obtained from an independent historian. History obtained from or confirmed by: Other (Patient) External Record Review External record reviewed: Other (Prior visit) Discharge Plan Discharge Clinical Impression: Constipation Patient Disposition: Home, Self-Care Instructions: Constipation (DC) Additional Instructions: X-ray shows large amount of constipation. You will be discharged with lactulose. Return to ED immediately for any nausea, vomiting, vomiting facies, fever, chills, flank pain, hematuria, dysuria, or any other concerning symptoms. Recommend follow-up with sap functional analyst and primary care provider. FINDINGS: Nonobstructive bowel gas pattern. Multiple rounded pelvic calcifications. Transitional lumbosacral vertebral body. [id number] amount of stool in the colon, predominantly in the ascending colon and overlying the pelvis. XR/XR KUB IMPRESSION: [id number] amount of stool in the colon. Nonobstructive bowel gas pattern. Electronically signed by: Jessica Huffman MD 06/17/2024 12:27 PM [facility] [place] Prescriptions: New lactulose 10 gram/15 mL solution 20 g PO DAILY 3 Days Qty: 90 0RF No Action isotretinoin [Amnesteem] 40 mg capsule 40 mg PO DAILY trazodone 50 mg tablet 50 mg PO BEDTIME minocycline 100 mg capsule 100 mg PO BID estradiol 0.1 mg/24 hr patch semiweekly 1 patch topical 2XW venlafaxine 150 mg capsule,extended release 24hr 150 mg PO QAM cyproheptadine 4 mg tablet 4 mg PO BID lorazepam [Ativan] 1 mg tablet 1 tab PO TID PRN (Reason: Anxiety) lorazepam [Ativan] 1 mg tablet 1 mg PO TID PRN (Reason: anxiety) 3 Days Qty: 9 0RF venlafaxine 100 mg tablet 100 mg PO QAM 3 Days Qty: 3 0RF ondansetron 4 mg tablet,disintegrating 4 mg PO Q6H PRN (Reason: nausea and vomiting) 2 Days Qty: 8 0RF omeprazole 40 mg capsule,delayed release(DR/EC) 40 mg PO DAILY Qty: 30 0RF ondansetron 4 mg tablet,disintegrating 4 mg PO Q6-8H PRN (Reason: nausea and vomiting) Qty: 7 0RF Referrals: [facility] [place] Gastroenterology Services [Provider Group] (constipation) Stand Alone Forms: Work/School Release Interventions: ED Discharge Assessment Last Done: 06/17/24 14:39 Discharge Date/Time: 06/17/24 14:39 Print Language: Vietnamese
[2024-06-17 11:56] LABS: MANUAL DIFF FLAG NO
[2024-06-17 11:57] LABS: Basophils Percent Auto 0.4 % (0-2); Eosinophils Absolute Auto 0.2 X10*3/uL (0.0-0.4); Eosinophils Percent Auto 3.4 % (0-4); Hematocrit 39.3 % (42.0-52.0); Hemoglobin 13.3 g/dl (14.0-18.0); Imm Gran Abs Auto 0.01 X10*3/uL (0.00-0.03); Imm Gran Pct Auto 0.1 % (0.0-0.4); Lymphocytes Percent Auto 28.6 % (20-40); Mean Corpuscular HGB Conc 33.8 g/dl (31.0-36.0); Mean Corpuscular Volume 94.7 fL (80.0-98.0); Monocytes Absolute Auto 0.7 X10*3/uL (0.1-1.2); Monocytes Percent Auto 9.7 % (2-11); Neutrophils Percent Auto 57.8 % (45-73); Platelet Count 223 X10*3/uL (160-400); Red Blood Count 4.15 X10*6/uL (4.60-5.80); Red Cell Distribution Width 12.3 % (11.0-16.0); White Blood Count 6.8 X10*3/uL (4.8-10.8)
[2024-06-17 12:13] LABS: Alanine Aminotransferase 17 U/L (0-40); Alkaline Phosphatase 50 U/L (39-117); Anion Gap 7 (12-20); Aspartate Amino Transferase 20 U/L (5-37); Bilirubin Total 0.4 mg/dL (0.0-1.0); Blood Urea Nitrogen 10 mg/dL (9-16); Calcium 9.4 mg/dL (8.4-10.2); Carbon Dioxide 30 mmol/L (22-29); Chloride 106 mmol/L (96-108); Creatinine Clr Calc Pharmacy 194.3; Estimated Glomerular Filt Rate > 60; Glucose Random 88 mg/dL (60-115); Potassium 4.1 mmol/L (3.3-5.1); Sodium 139 mmol/L (135-145); Total Protein 6.5 g/dL (6.5-8.0)
[2024-06-17 14:19] VITALS: BP 101/62; PULSE 80; RESP 20; TEMP 37.1; O2SAT 100
[2024-06-17 14:39] VITALS: BP 101/62; PULSE 80; RESP 20; TEMP 37.1; O2SAT 100
== END 2024-06-17 14:39 | disposition home or self-care (01) ==
PROVIDERS: Physician Assistant; Emergency Provider Emergency Medicine; PCP Surgery
DX: K59.00 Constipation, unspecified (principal); R10.2 Pelvic and perineal pain; Z79.899 Other long term (current) drug therapy
CPT/HCPCS: 36415; 74018; 80053; 85025; 99282; 99283

== ENCOUNTER 2025-05-25 16:26 | Emergency (ER) | payer MEDICARE, MEDICAID, SELFPAY ==
--- NOTE | 2025-05-25 16:30 | ED.GENADULT ---
HPI - General Adult General Chief complaint: Nausea/Vomiting/Diarrhea Stated complaint: Nausea Vomiting Diarrhea Time Seen by Provider: 05/25/25 18:49 Source: patient Mode of arrival: ambulatory Limitations: no limitations History of Present Illness ED Provider: YOMAIRA Stuart HPI narrative: 20-year-old transgender female with medical history of autism, ADHD, depression, anxiety presents to the ED due to GI complaints and headache. Patient states that she has been diagnosed with C diff at [facility] approximately 6 weeks ago and was started on 10 day course of vancomycin q.i.d.. Patient states they were taking their antibiotics as indicated however felt as if her symptoms were returning. When the patient followed up with [facility] GI, C diff test was still positive she was symptomatic and was started on vancomycin taper. Patient states she is on day 12 of the taper, with approximately 26 days left. Patient reports a decreased p.o. intake over the last week as she feels her GI symptoms are again getting worse. Patient follows up with GI in 10 days on 06/04. Additionally, patient states she has chronic migraine headaches over the past six-months that are frontal and feels a cold temperature and pressure like sensation in the middle of the forehead and are intermittent. Patient reports her headaches can be associated with very small area of blurred vision in the periphery of her R eye but this has been going on for the past 6 months. Patient reports her headache is a 2/10 today, and states that she has had more severe headaches over the past six-months. Denies abdominal pain, urinary symptoms, dizziness, lightheadedness, chest pain, shortness of breath MD complaint: C diff positive, nausea, chronic headaches Related Data Home Medications ?Medication ?Instructions ?Recorded ?Confirmed cyproheptadine 4 mg tablet 4 mg PO BID 04/25/21 04/25/21 estradiol 0.1 mg/24 hr semiweekly 1 patch topical 2XW 04/25/21 04/25/21 transdermal patch isotretinoin 40 mg capsule 40 mg PO DAILY 04/25/21 04/25/21 (Amnesteem) lorazepam 1 mg tablet (Ativan) 1 tab PO TID PRN Anxiety 04/25/21 04/25/21 minocycline 100 mg capsule 100 mg PO BID 04/25/21 04/25/21 trazodone 50 mg tablet 50 mg PO BEDTIME 04/25/21 04/25/21 venlafaxine 150 mg 150 mg PO QAM 04/25/21 04/25/21 capsule,extended release 24 hr Previous Rx's ?Medication ?Instructions ?Recorded lorazepam 1 mg tablet (Ativan) 1 mg PO TID PRN anxiety 3 days #9 11/14/23 tabs ondansetron 4 mg disintegrating 4 mg PO Q6H PRN nausea and 11/14/23 tablet vomiting 2 days #8 tabs venlafaxine 100 mg tablet 100 mg PO QAM 3 days #3 tabs 11/14/23 omeprazole 40 mg capsule,delayed 40 mg PO DAILY #30 caps 06/12/24 release ondansetron 4 mg disintegrating 4 mg PO Q6-8H PRN nausea and 06/12/24 tablet vomiting #7 tabs lactulose 10 gram/15 mL oral 20 g (30 mL) PO DAILY 3 days #90 mL 06/17/24 solution ondansetron HCl 4 mg tablet 4 mg PO Q8H PRN nausea and 05/25/25 vomiting 3 days #10 tabs Allergies Allergy/AdvReac Type Severity Reaction Status Date / Time amoxicillin (AMOXICILLIN) Allergy Unknown HIVES Verified 05/25/25 16:34 clavulanic acid (From Allergy Unknown HIVES Verified 05/25/25 16:34 AUGMENTIN) Review of Systems Review of Systems: Yes all other systems are reviewed and are negative PMFSH Past Medical History Attestation statement: The following information was validated with the patient. Source: old records reviewed and nursing notes reviewed Medical History Self-harming behavior Anxiety Depression ADHD Autism Social History Social History Alcohol intake: never Smoked in Last 30 Days: No Use of substances other than those prescribed or required for medical reasons: No Substance Use Type: Marijuana Advance Directives: No Advance Directives Information Provided: No Do you have a plan to hurt others: No Plan Physical Exam ED Vital Signs: Vital Signs - 24 hr 05/25/25 16:31 05/25/25 17:54 Temperature 97.3 F 98.3 F Pulse Rate 109 H 95 Respiratory Rate 16 18 Blood Pressure 115/71 119/76 Pulse Oximetry 99 95 Oxygen Delivery Method Room Air Room Air BMI result Body Mass Index 22.0 GENERAL APPEARANCE: ?AxOx4, generally well-appearing, no acute distress. HEENT: ?NC, AT. MMM. EOMI, clear conjunctiva, oropharynx clear. Visual field testing without any deficits of vision NECK: ?Supple without lymphadenopathy.? No stiffness or restricted ROM. HEART:? Normal rate and regular rhythm, normal S1/S2, no m/r/g LUNGS:? CTAB, moving air well. No crackles or wheezes are heard. ABDOMEN: ?Soft, nontender, nondistended BACK: No CVAT, no obvious deformity. EXTREMITIES: ?Without cyanosis, clubbing or edema. NEUROLOGICAL: ?Grossly nonfocal. Alert and oriented, moving all 4 extremities. Observed to ambulate with normal gait. Skin: ?Warm and dry without any rash. Course Course Course Narrative: This is a Rapid Medical Examination (RME) performed by Steve Gonzalez PA-C in triage. Full HPI, ROS, assessment and treatment plan per primary provider in the Main ED. Hx: 20 yo M here for eval of abd pain, N/V/D and headache. reports multiple c diff infections, tx w/ vanco. called pcp advised to come to ED. Plan: labs, UA, stool studies Reevaluation(s) Reevaluation #1: Upon discharge, patient was eating pringles and developed a ?burning? sensation in the epigastric region of her stomach. Patient being medicated with GI cocktail of Maalox and viscous lidocaine. I counseled patient to eat a bland diet as she is figuring out what triggers her belly pain however patient states that she has a processing disorder with food and only has very few safe foods that she can tolerate. Time: 21:39 Medications Administered Discontinued Medications Generic Name Dose Route Start Last Admin Trade Name Freq PRN Reason Stop Dose Admin Acetaminophen 1,000 mg in 100 mls @ 400 mls/hr 05/25/25 19:49 05/25/25 20:38 Ofirmev IV 05/25/25 20:03 Infused ONCE ONE Infusion Lactated Ringer's 1,000 mls @ 999 mls/hr 05/25/25 20:11 05/25/25 21:32 Lr IV 05/25/25 21:11 Infused .Q1H1M ONE Infusion Medical Decision Making Medical Decision Making [facility] Narrative: 20-year-old transgender female with medical history of autism, ADHD, depression, anxiety presents to the ED due to GI complaints and headache. Patient states that she has been diagnosed with C diff at [facility] approximately 6 weeks ago and was started on 10 day course of vancomycin q.i.d.. Patient states they were taking their antibiotics as indicated however felt as if her symptoms were returning. When the patient followed up with [facility] GI, C diff test was still positive she was symptomatic and was started on vancomycin taper. Patient states she is on day 12 of the taper, with approximately 26 days left. Patient reports a decreased p.o. intake over the last week as she feels her GI symptoms are again getting worse. Patient follows up with GI in 10 days on 06/04. Additionally, patient states she has chronic migraine headaches over the past six-months that are frontal and feels a cold temperature and pressure like sensation in the middle of the forehead and are intermittent. Patient reports her headaches can be associated with very small area of blurred vision in the periphery of her R eye but this has been going on for the past 6 months. Patient reports her headache is a 2/10 today, and states that she has had more severe headaches over the past six-months, has follow up with neurology in August. VS on initial observation-BP 115/71, pulse rate of 109, respiratory rate of 16, afebrile with oral temp of 97.3?, O2 saturation 99% on room air. Physical exam is completely benign, lungs clear to auscultation bilaterally, cardiac exam with normal rate and rhythm without murmurs/rubs/gallops, HEENT with EOMI, pupils reactive to consensual accommodation light reflex, no significant pain with extraocular movements. Neurological exam is grossly nonfocal, patient is able to ambulate without ataxic/antalgic gait. Labs without leukocytosis/leukopenia, no evidence of anemia, no electrolyte abnormalities. UA negative for blood or bacteria. Viral serology negative. Patient is afebrile, without leukocytosis, with a recent diagnosis of C diff currently on vancomycin taper. Stool samples ordered by triage however patient will most likely be positive for C diff, no indication for stool sample today as they are currently on vancomycin taper for C diff. patient with [facility] GI follow up in 10 days on 06/04. Patient will be discharged home with Zofran that she can use to manage her nausea as she awaits follow up with GI. Patient was six-months of chronic headaches, is complaining of headache today however has not changed in quality or intensity, she rates her headache today as a 2/10 on the pain scale. Headaches are not associated with dizziness, lightheadedness, syncope, significant visual changes. Patient with decreased p.o. intake over the past week due to nausea and vomiting, headaches may be contributed to this, she does have follow up with Neurology in August for chronic headaches. VS on re assessment-BP 119/76, pulse rate of 95, respiratory rate of 18, afebrile with oral temp of 98.3?, O2 saturation 95% on room air. Differential Diagnosis Differential Diagnoses: The differential diagnosis associated with the presentation includes Migraine headache Chronic headaches Gastritis C diff Electrolyte abnormality Admission/Observation Consideration of admission/observation: Escalation of care including admission/observation considered Patient is neurologically intact, without leukocytosis, is afebrile, no indication for admission today Lab Data MDM Lab Attestation statement: I reviewed the patient's lab results. 05/25/25 16:39 05/25/25 16:39 Labs: Lab Results 05/25/25 05/25/25 Range/Units 16:39 18:10 WBC 8.4 (4.8-10.8) X10*3/uL RBC 4.79 (4.60-5.80) X10*6/uL Hgb 15.2 (14.0-18.0) g/dl Hct 44.2 (42.0-52.0) % MCV 92.3 (80.0-98.0) fL MCH 31.7 (27.0-33.0) pg MCHC 34.4 (31.0-36.0) g/dl RDW 11.9 (11.0-16.0) % Plt Count 295 D (160-400) X10*3/uL MPV 10.6 (9.4-12.4) fL Immature Gran % (Auto) 0.2 (0.0-0.4) % Neut % (Auto) 55.3 (45-73) % Lymph % (Auto) 32.9 (20-40) % Cascade % (Auto) 8.2 (2-11) % Eos % (Auto) 2.7 (0-4) % Baso % (Auto) 0.7 (0-2) % Lymph # (Auto) 2.8 (1.2-4.9) X10*3/uL Cascade # (Auto) 0.7 (0.1-1.2) X10*3/uL Eos # (Auto) 0.2 (0.0-0.4) X10*3/uL Baso # (Auto) 0.1 (0.0-0.2) X10*3/uL Abs Immat Gran (auto) 0.02 (0.00-0.03) X10*3/uL Absolute Neuts (auto) 4.6 (2.0-8.3) x10*3/uL Absolute Nucleated RBC 0.000 (0.0-0.012) X10*3/uL Nucleated RBC % (auto) 0.0 (0.0-0.2) /100WBC Sodium 139 (135-145) mmol/L Potassium 4.4 (3.3-5.1) mmol/L Chloride 107 (96-108) mmol/L Carbon Dioxide 25 (22-29) mmol/L Anion Gap 11 L (12-20) BUN 11 (9-16) mg/dL Creatinine 0.83 (0.5-1.4) mg/dL Estim Creat Clear Calc 145.1 Estimated GFR > 60 Random Glucose 114 (60-115) mg/dL Calcium 9.6 (8.4-10.2) mg/dL Magnesium 2.0 (1.6-2.6) mg/dL Total Bilirubin 0.4 (0.0-1.0) mg/dL AST 22 (5-37) U/L ALT 21 (0-40) U/L Alkaline Phosphatase 61 (39-117) U/L Total Protein 7.4 (6.5-8.0) g/dL Albumin 4.7 (3.5-5.0) g/dL Lipase 35 (8-78) U/L Urine Color Yellow Urine Appearance Clear Urine pH 7.5 (5.0-9.0) Ur Specific Ponder 1.015 (1.005-1.025) Urine Protein Negative (Neg-Trace) mg/dL Urine Glucose (UA) Negative (Negative) mg/dL Urine Ketones Negative (Negative) mg/dL Urine Blood Negative (Negative) Urine Nitrite Negative (Negative) Ur Leukocyte Esterase Negative (Negative) Influenza Type A (PCR) NEGATIVE (Negative) Influenza Type B (PCR) NEGATIVE (Negative) RSV RNA Qual (PCR) NEGATIVE (Negative) SARS-CoV-2 RNA (RT-PCR) NEGATIVE (Negative) External Record Review External record reviewed: Inpatient record, Office record and Outpatient record Prescription Management I considered prescription management with: Antibiotic (Patient is currently on vancomycin taper, no indication for antibiotic therapy today.) Chronic Conditions Patient?s care impacted by: Other (Autism, anxiety, depression, ADHD) Discharge Plan Discharge Clinical Impression: Headache, Nausea Patient Disposition: Home, Self-Care Additional Instructions: You were evaluated in the ED today due to nausea, vomiting, headaches. Your lab work was reassuring as there was no significant elevation or decrease in your white blood cell count indicative of infection, no evidence of anemia or electrolyte abnormalities. Your urine was negative for blood or bacteria. Your viral swabs including flu, RSV, COVID were negative today. You were recently diagnosed with C diff infection and R on a vancomycin taper. This is most likely contributing to your symptoms. Please complete the entire course of medication. Ensure that you were following up with GI on 06/04, and neurology in August. You are being prescribed Zofran that you can use for nausea while you were completing your course of antibiotics for C diff. make sure you are getting plenty of hydration through drinks like Gatorade, Powerade or Pedialyte. You may have a decreased appetite during this time, this is normal eat a bland diet and advance as tolerated. To manage headaches at home you can take 500 mg of Tylenol, 400 mg of ibuprofen every 6 hours. Please follow up with your primary care doctor to ensure resolution of your symptoms. Please return to the emergency department if you experience worsening headache, worsening nausea, worsening vomiting, worsening diarrhea, chest pain, shortness of breath, fevers over 100.4? or any new/worsening/concerning symptoms. Prescriptions: New ondansetron HCl 4 mg tablet 4 mg PO Q8H PRN (Reason: nausea and vomiting) 3 Days Qty: 10 0RF No Action isotretinoin [Amnesteem] 40 mg capsule 40 mg PO DAILY trazodone 50 mg tablet 50 mg PO BEDTIME minocycline 100 mg capsule 100 mg PO BID estradiol 0.1 mg/24 hr patch semiweekly 1 patch topical 2XW venlafaxine 150 mg capsule,extended release 24hr 150 mg PO QAM cyproheptadine 4 mg tablet 4 mg PO BID lorazepam [Ativan] 1 mg tablet 1 tab PO TID PRN (Reason: Anxiety) lorazepam [Ativan] 1 mg tablet 1 mg PO TID PRN (Reason: anxiety) 3 Days Qty: 9 0RF venlafaxine 100 mg tablet 100 mg PO QAM 3 Days Qty: 3 0RF ondansetron 4 mg tablet,disintegrating 4 mg PO Q6H PRN (Reason: nausea and vomiting) 2 Days Qty: 8 0RF omeprazole 40 mg capsule,delayed release(DR/EC) 40 mg PO DAILY Qty: 30 0RF ondansetron 4 mg tablet,disintegrating 4 mg PO Q6-8H PRN (Reason: nausea and vomiting) Qty: 7 0RF lactulose 10 gram/15 mL solution 20 g PO DAILY 3 Days Qty: 90 0RF Print Language: Czech
[2025-05-25 16:31] VITALS: BP 115/71; PULSE 109; RESP 16; TEMP 36.3; O2SAT 99; BMI 22.0
[2025-05-25 16:42] LABS: MANUAL DIFF FLAG NO
[2025-05-25 16:44] LABS: Hematocrit 44.2 % (42.0-52.0); Hemoglobin 15.2 g/dl (14.0-18.0); Imm Gran Abs Auto 0.02 X10*3/uL (0.00-0.03); Imm Gran Pct Auto 0.2 % (0.0-0.4); Lymphocytes Absolute Auto 2.8 X10*3/uL (1.2-4.9); Mean Corpuscular HGB Conc 34.4 g/dl (31.0-36.0); Mean Corpuscular Hemoglobin 31.7 pg (27.0-33.0); Mean Corpuscular Volume 92.3 fL (80.0-98.0); NRBC Abs Auto 0.000 X10*3/uL (0.0-0.012); NRBC Pct Auto 0.0 /100WBC (0.0-0.2); Platelet Count 295 X10*3/uL (160-400); Red Blood Count 4.79 X10*6/uL (4.60-5.80); White Blood Count 8.4 X10*3/uL (4.8-10.8)
--- OUTSIDE RECORDS SUMMARY | 2025-05-25 16:47 | XMS_ITS | Encounter Summary ---
Author Organization [facility] Address [address] [place] [phone] Phone Care Team Providers Care Garden Worker Name Role Phone Unavailable Primary Care Provider Unavailabl e Encounter Details Date Type Department Care Team (Late st Contact Info) Description 08/31/2016 Documentation [facility] [place] [facility] [address] [place] [address] Family Medicine, Physician [address] [place] [address] Social History Tobacco Use Types Packs/Day Years Used Date Smoking Tobacco: Never Assessed Sex and Gender Information Value Date Recorded Sex Assigned at Male 08/06/2019 2:42 PM EST Legal Sex Male 5:06 PM EDT Gender Identity Transgender Female 08/06/2019 2: 42 PM EST Sexual Orientation Bisexual 07/14/2021 3: 57 PM EST documented as of this encounter Plan of Treatment Not on file documented as of this encounter Visit Diagnoses Not on filedocumented in this encounter
--- OUTSIDE RECORDS SUMMARY | 2025-05-25 16:47 | XMS_ITS | Encounter Summary ---
Author Organization [facility] Address [address] [place] [phone] Phone Care Team Providers Care Correction Officer Penitentiary Name Role Phone Megan Law CNP Primary Care Provid er Encounter Details Date Type Department Care Team (Late st Contact Info) Description 10/21/2024 Procedure Pass [facility], Ct Scan - [address] [id number] Social History Tobacco Use Types Packs/Day Years Used Date Smoking Tobacco: Never Smokeless Tobacco: Never Alcohol Use Standard Drinks/Week Comments Never 0 (1 standard drink = 0.6 oz pur e alcohol) Child or Family Care Answer Date Record ed Do you have problems with on e of the following making it difficult for you to work, study, or receive health care? No 12/29/2023 Education Answer Date Recorded Are you interested in more education? Not on charity e 12/29/2023 Are you concerned about your learning, performance, or behavior in school? No 12/29/2023 No 12/29/2023 Yes 12/29/2023 Food Answer Date Recorded Within the past 6 months we worried whether our food would run out before we got money to buy more. Sometimes True 024 Within the past 6 months the food we bought just didn't last and we didn't have enough money to get more. Sometimes True 12/09 Residential Stability Answer Date Recor ded What is your housing situation today? I have pancho sing 12/29/2023 How many times have you move d in the past 12 months? Zero (I did not move) 12/29/2023 Paying for Meds Answer Date Recorded Do you have trouble paying for medicines? No 12/29/2023 Paying Utility Bills Answer Date Record ed Do you have trouble paying your heating or elect ricity bill? No 12/29/2023 Transportation Answer Date Recorded Has the lack of transportati on kept you from medical appointments or from getting medications? No 12/29/2023 Digital Access Answer Date Recorded No 12/29/2023 Yes 12/29/2023 Do you have reliable internet access at home? Ye s 12/29/2023 Do you have a device (e.g., phone, tablet, computer) with a working camera? Yes 12/29/2023 Sex and Gender Information Value Date Recorded Sex Assigned at Male 04/28/2020 7:51 PM EDT Legal Sex Male 5:31 PM EST Gender Identity Transgender Female 04/28/2020 7: 51 PM EDT Sexual Orientation Not on file documented as of this encounter Plan of Treatment Upcoming Encounters Date Type Department Care Team (Late st Contact Info) Description 06/23/2025 10:00 AM EST Office Visit [facility] [address] [place] [address] Megan Law CNP [address] [place] [id number] [email or web address] documented as of this encounter Visit Diagnoses Not on filedocumented in this encounter Care Teams Correction Officer Penitentiary Relationship Specialty Start Date End Date Megan Law CNP [address] [place] [id number] [email or web address] PCP - General Nurse Practitioner 02/14/24 documented as of this encounter Additional Source Comments The information contained in this document represents components of the legal health record. It is not the complete legal health record.[facility]
--- OUTSIDE RECORDS SUMMARY | 2025-05-25 16:47 | XMS_ITS | Encounter Summary ---
Author Organization [facility] Address [address] [place] [address] Phone Care Team Providers Care Budget Officer Name Role Phone Unavailable Primary Care Provider Unavailabl e Encounter Details Date Type Department Care Team (Late st Contact Info) Description 07/23/2019 Documentation [facility] Social History Tobacco Use Types Packs/Day Years Used Date Smoking Tobacco: Never Smokeless Tobacco: Never Comments:Never smoker Alcohol Use Standard Drinks/Week Comments No 0 (1 standard drink = 0.6 oz pur e alcohol) Hunger/Food Answer Date Recorded No 04/23/2019 Stable Housing Answer Date Recorded No 07/13/2019 Transportation Concerns Answer Date Rec orded No 07/28/2018 Hazards in Home Answer Date Recorded No 07/28/2018 Financing Utilities Answer Date Recorde d No 04/23/2019 Safety at Home Answer Date Recorded No 07/28/2018 Outside Support Answer Date Recorded No 04/23/2019 Understanding Health Concerns Answer Da te Recorded No 07/28/2018 Financing Health Concerns Answer Date R ecorded No 07/28/2018 Missing School or Work Answer Date Lior rded No 07/28/2018 Sex and Gender Information Value Date Recorded Sex Assigned at Male 08/06/2019 2:42 PM EST Legal Sex Male 5:06 PM EDT Gender Identity Transgender Female 08/06/2019 2: 42 PM EST Sexual Orientation Bisexual 07/14/2021 3: 57 PM EST documented as of this encounter Progress Notes * [facility] - 07/23/2019 4:02 PM EST SLPPN [address] [address] A Member of the [facility] SPEECH PROGRESS NOTES Name: JARROD HAM - 2005 - 14yrs Admit Date: 07/23/19 Report #: [id number] [facility] Speech/Language Pathology Outpatient Treatment Note Visit Number: Today's visit is number 6 Patient Identification: Full name. Patient identified by: self Referring Physician: Dr. Martin History of Present Illness: Date of Onset: 07/02/19 date of script Additional Information: Pt is a 14-year-old female with medical diagnosis gender dysphoria referred for a voice eval and voice therapy to bring voice into alignment with gender identity/expression. 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 Pt is currently seeing a gender therapist and has an excellent support team, including pt mother. Rehabilitation Precautions/Restrictions: Speech Language Pathology: Fall Risk Assessment: Patient does not appear to have an increased risk of falls. SUBJECTIVE Patient Report: I feel like it (feminine voice) is starting to be more subconcious OBJECTIVE General Observation: Pt engaged in treatment, appeared to be in very good spirits. Interventions: Speech Language Treatment: Transgender Self Evaluation Questionnaire: Pt scored a 49 on the TSEQ, which range is 0-150. The lower the score, the better quality of life related to voice by the patient. Pt's lower score is positive and correlates with changes in voice related to treatment. Pitch: Pt read a female-based monologue with habitual pitch ranging from 104- 138 Hz. Pt showed a large range of 75 - 392 Hz during this reading. The elevated pitch and large range in pitch created a more feminine sounding voice. Prosody: Pt had 100% accuracy in correctly utilizing prosody in dramatic readings. Pt's prosody was extremely feminine. Pt was provided with education RE: transgender voice groups, LGBTQ/transgender support groups in the area, vocal hygiene, and vocal practice in anticipation of discharge. Education: Education Provided: Plan of care. Vocal hygiene. ASSESSMENT Therapy Diagnosis: Rank Code Description Date of Onset 1 R49.0 Dysphonia 08/06/2019 2 F64 Gender identity disorders 08/06/2019 Clinical Status Changes: Patient has not experienced significant, unusual or unexpected change in clinical status since their last visit. Progress Toward Goals: SHORT TERM GOAL REVIEW: 1. Pt will participate in education re: speech strategies, muscle tension/relaxation, breath support for speech, vocal hygiene, vocal function, etc - Met 2. Pt will be IND for HEP - Met 3. Pt will complete structured resonance tasks, 90% acc - Met 4. Pt will complete structured flow phonation tasks, 90% acc - Met 5. Pt will reduce LHF to MIN for phonation tasks, 90% acc - Met 6. Pt will reduce LHF to MIN for open conversational tasks, 90% acc - Met HALF-WAY GOAL REVIEW: 1. Pt will reduce LHF and use resonance and breathing techniques to align voice with gender identity for all speech-related ADLs - Met PLAN Treatment Frequency, Duration, and Interventions: The patient has been discharged from Speech/Language Pathology services secondary to: Goals have been MET. Recommended Consults: None currently. Development of Plan of Care: Patient participated in plan of care development today. The patient has been instructed to contact our clinic if any questions or problems should arise. SESSION START: 09/10/2019 4:00:00 PM STOP: 09/10/2019 5:00:00 PM Services: Total Billed: 60 minutes (Timed: 0, Untimed: 60) 60.00 Untimed: [[id number]] Speech Language Therapy Signed by: KENNY TAO OUTPATIENT PHYSICAL THERAPIST ASSISTANT STUDENT 09/10/2019 5:00:00 PM I attest that I, Scott Espinosa M.A., [facility]-OUTPATIENT PHYSICAL THERAPIST ASSISTANT, was present and physically involved in the ongoing assessment, decision making, and actual delivery of care and interventions provided during today's patient care session. I have reviewed all documentation for today's session 09/10/19 entered by Speech Therapy Asphalt Mixer (Kenny Tao), and further attest that it is an accurate clinical record of today's encounter, including accurate and appropriate charges. - CoSigned By: SCOTT ESPINOSA M.A. OUTPATIENT PHYSICAL THERAPIST ASSISTANT-CCC 09/10/2019 5:58:35 PM documented in this encounter Plan of Treatment Not on file documented as of this encounter Visit Diagnoses Not on filedocumented in this encounter
--- OUTSIDE RECORDS SUMMARY | 2025-05-25 16:47 | XMS_ITS | Encounter Summary ---
Author Organization [facility] Address [address] [place] [address] Phone Care Team Providers Care Ground Wirer Name Role Phone Unavailable Primary Care Provider Unavailabl e Encounter Details Date Type Department Care Team (Late st Contact Info) Description 07/23/2019 Research Encounter [facility] Social History Tobacco Use Types Packs/Day [...] 42 PM EST Sexual Orientation Bisexual 07/14/2021 3 :57 PM EST documented as of this encounter Plan of Treatment Not on file documented as of this encounter Visit Diagnoses Not on filedocumented in this encounter
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
--- OUTSIDE RECORDS SUMMARY | 2025-05-25 16:47 | XMS_ITS | Encounter Summary ---
Author Organization [facility] Address [address] [place] [phone] Phone Care Team Providers Care Senior Medical Director Name Role Phone Stephanie Louis MD Primary Care Provid er Shaun Jo MD Unavailable [phone] Megan Law [facility] Primary Care Provid er Encounter Details Date Type Department Care Team (Late st Contact Info) Description 11/22/2022 Transcribe Orders [facility] [address] [place] [address] Sabiha Velazquez PA [address] [place] [address] [email or web address] Social History Tobacco Use Types Packs/Day Years Used Date Smoking Tobacco: Never Alcohol Use Standard Drinks/Week Comments Never 0 (1 standard drink = 0.6 oz pur e alcohol) Education Answer Date Recorded Are you interested in more education? Not on charity e 11/12/2022 Are you concerned about learning? Not on file 11/12/2022 No 11/12/2022 No 11/12/2022 Sex and Gender Information Value Date Recorded Sex Assigned at Male 04/28/2020 7:51 PM EDT Legal Sex Male 5:31 PM EST Gender Identity Transgender Female 04/28/2020 7: 51 PM EDT Sexual Orientation Not on file documented as of this encounter Plan of Treatment Upcoming Encounters Date Type Department Care Team (Late Contact Info) Description 06/23/2025 10:00 AM EST Office Visit [facility] [address] [place] [address] Megan Law CNP [address] [place] [address] [email or web address] documented as of this encounter Visit Diagnoses Not on filedocumented in this encounter Care Teams Senior Medical Director Relationship Specialty Start Date End Date Stephanie Louis MD [address] [place] [address] PCP - General Pediatrics 04/28/20 02/13/24 Megan Law CNP [address] [place] [address] PCP - General Nurse Practitioner 02/14/24 Shaun Jo MD [address] [place] [address] [email or web address] Insurance Assigned Provider 09/17/22 11/26/22 documented as of this encounter Additional Source Comments The information contained in this document represents components of the legal health record. It is not the complete legal health record.[facility]
--- OUTSIDE RECORDS SUMMARY | 2025-05-25 16:47 | XMS_ITS | Encounter Summary ---
Author Organization [facility] Address [address] [place] [address] Phone Care Team Providers Care Certified Registered Locksmith Name Role Phone Unavailable Primary Care Provider Unavailabl e Encounter Details Date Type Department Care Team (Late st Contact Info) Description 07/13/2016 Documentation [facility] [place] Family Medicine [address] [place] [address] Family Medicine, Physician [address] [place] [address] Social History Tobacco Use Types Packs/Day Years [...]
--- OUTSIDE RECORDS SUMMARY | 2025-05-25 16:47 | XMS_ITS | Encounter Summary ---
Author Organization [facility] Address [address] [place] [address] Phone Care Team Providers Care Landscape Engineer Name Role Phone Unavailable Primary Care Provider Unavailabl e Encounter Details Date Type Department Care Team (Late st Contact Info) Description 02/23/2017 Conversion Encounter [facility] - [address] [address] Social History Tobacco Use Types Packs/Day Years Used Date Smoking Tobacco: Never Comments:Never smoker Sex and Gender Information Value Date Recorded [...]
--- OUTSIDE RECORDS SUMMARY | 2025-05-25 16:47 | XMS_ITS | Encounter Summary ---
Author Organization [facility] Address [address] [place] [address] Phone Care Team Providers Care Ampoule Sealer Name Role Phone Unavailable Primary Care Provider Unavailabl e Encounter Details Date Type Department Care Team (Late st Contact Info) Description 12/09/2013 Documentation [facility] Family Medicine [address] [place] [address] Family Medicine, Physician [address] [place] [address] Social History Tobacco Use Types Packs/Day Years [...]
--- OUTSIDE RECORDS SUMMARY | 2025-05-25 16:47 | XMS_ITS | Encounter Summary ---
Author Organization [facility] Address [address] [place] [phone] Phone Care Team Providers Care Pension Examiner Name Role Phone Megan Law CNP Primary Care Provid er Encounter Details Date Type Department Care Team (Late st Contact Info) Description 05/23/2025 Orders Only [facility] [address] [place], [place] [phone] Megan Law CNP [address] [place], [place] [phone] [email or web address] Gender dysphoria (Primary Dx) Social History Tobacco Use Types Packs/Day Years [...] enough money to get more. Sometimes True 07/0 07/2024 Residential Stability Answer Date Recor ded What is your housing situation today? I have pancho jones 01/07/2025 How many times have you move [...] on file documented as of this encounter Progress Notes * Megan Law CNP - 05/23/2025 4:58 PM EST See previous visit note. Lupron is suppressing testosterone level but she is noticing more facial and body hair. Her estradiol level was 183 on 05/19/25, which is the highest it has every been. Looking for full medical transition. Is on 4mg SL estradiol currently. Would like to avoid injections if possible. Communicated with pt and will raise dose to 6mg daily taken as 2 tabs (4mg) in AM and 1 tab (2mg) in PM documented in this encounter Plan of Treatment Upcoming Encounters Date Type Department Care Team (Late st Contact Info) Description 06/23/2025 10:00 AM EST Office Visit [address] [address] Brett Lawen AMELIE Mcarthur [address] [place] [phone] [email or web address] documented as of this encounter Visit Diagnoses Diagnosis Gender dysphoria- Primary documented in this encounter Care Teams Pension Examiner Relationship Specialty Start Date End Date Megan LawAMELIE [address] [place] [phone] [email or web address] PCP - General Nurse Practitioner 02/14/24 documented as of this encounter Additional Source Comments The information contained in this document represents components of the legal health record. It is not the complete legal health record.[facility]
--- OUTSIDE RECORDS SUMMARY | 2025-05-25 16:48 | XMS_ITS | Encounter Summary ---
Author Organization [facility] Address [address] [place] [phone] Phone Care Team Providers Care Wire Inserter Name Role Phone Unavailable Primary Care Provider Unavailabl e Encounter Details Date Type Department Care Team (Late st Contact Info) Description 12/27/2013 Documentation [facility] [place] [facility] [address] [place] [address] Family Medicine, Physician [address] [place] [address] Social History Tobacco Use Types Packs/Day Years [...]
--- OUTSIDE RECORDS SUMMARY | 2025-05-25 16:48 | XMS_ITS | Encounter Summary ---
Author Organization [facility] Address [address] [place] [phone] Phone Care Team Providers Care Pharmaceutical Development Technician Name Role Phone Unavailable Primary Care Provider Unavailabl e Encounter Details Date Type Department Care Team (Late st Contact Info) Description 12/18/[address] [facility] [place] Family Medicine [address] [place] [address] Family Medicine, Physician [address] [place] [address] Social History Tobacco Use Types Packs/Day Years [...]
--- OUTSIDE RECORDS SUMMARY | 2025-05-25 16:48 | XMS_ITS | Encounter Summary ---
Author Organization [facility] Address [address] [place] [phone] Phone Care Team Providers Care Institutional Cook Name Role Phone Unavailable Primary Care Provider Unavailabl e Encounter Details Date Type Department Care Team (Late st Contact Info) Description 01/29/2014 [place] [facility] [place] [address] [place] [address] Family Medicine, Physician [address] [place] [address] Social History Tobacco Use Types Packs/Day Years [...]
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
[2025-05-25 16:59] LABS: Alanine Aminotransferase 21 U/L (0-40); Albumin Level 4.7 g/dL (3.5-5.0); Alkaline Phosphatase 61 U/L (39-117); Anion Gap 11 (12-20); Aspartate Amino Transferase 22 U/L (5-37); Blood Urea Nitrogen 11 mg/dL (9-16); Calcium 9.6 mg/dL (8.4-10.2); Carbon Dioxide 25 mmol/L (22-29); Chloride 107 mmol/L (96-108); Creatinine Clr Calc Pharmacy 145.1; Estimated Glomerular Filt Rate > 60; Lipase 35 U/L (8-78); Magnesium 2.0 mg/dL (1.6-2.6); Potassium 4.4 mmol/L (3.3-5.1); Sodium 139 mmol/L (135-145); Total Protein 7.4 g/dL (6.5-8.0)
[2025-05-25 17:54] VITALS: BP 119/76; PULSE 95; RESP 18; TEMP 36.8; O2SAT 95
[2025-05-25 18:20] LABS: Appearance Urine Clear; Glucose Urine UA Negative (Negative); PH 7.5 (5.0-9.0); Specific Gravity - Urine 1.015 (1.005-1.025)
[2025-05-25 18:53] LABS: Resp Syncy Virus RNA Qual PCR NEGATIVE (Negative); SARS COV2 PCR INHOUSE NEGATIVE (Negative)
[2025-05-25] MEDS: Lactated Ringers 1,000 ML 999 ML IV (20:14)
[2025-05-25 21:59] VITALS: BP 122/69; PULSE 87; TEMP 36.9
[2025-05-25] MEDS: Lidocaine HCl Viscous 2 % 15 ML SOLUTION MUCOUS MEM (22:00)
[2025-05-25] MEDS: Magnesium Hydrox/Alum Hydrox 30 ML ORAL.SUSP PO (22:00)
[2025-05-25 22:07] VITALS: BP 122/69; PULSE 87; RESP 16; TEMP 36.9; O2SAT 100
== END 2025-05-25 22:07 | disposition home or self-care (01) ==
PROVIDERS: Physician Assistant Medical; Emergency Provider Student in an Organized Health Care Education/Training Program; PCP Surgery
DX: R11.0 Nausea (principal); R51.9 Headache, unspecified; A49.8 Other bacterial infections of unspecified site; Z88.0 Allergy status to penicillin; Z88.1 Allergy status to other antibiotic agents; Z03.818 Encounter for observation for suspected exposure to other biological agents ruled out
CPT/HCPCS: 36415; 80053; 81003; 83690; 83735; 85025; 87637; 96361; 96365; 99285; J0131; J7120